=== PATIENT | male | born 1935 | race Caucasian/White ===

== ENCOUNTER 2016-10-14 06:33 | Emergency (ER) | payer MEDICARE, OTHER ==
[~2016-10-14 06:33] MED LIST: ASPI-973 PO; ATOR10TA66 PO; CHOL200047 PO; DEXT4TAB PO; GABA-502 PO; HYDR-3938 PO; INSU100I SUBQ; MELA1TAB10 PO; METO25TA6 PO; NPH,100V10 SUBQ; OXYC1TAB24 PO; VERA240C3 PO; ZYL100 PO; [UNRECOGNIZED DRUG - CODE] PO
[2016-10-14 06:35] VITALS: PULSE 71; RESP 20; O2SAT 97
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
[2016-10-14] MEDS ORDERED: Ondansetron 2 mg/mL 2 mL Inj IVPUSH PRN (07:00)
[2016-10-14] MEDS ORDERED: 0.9% Sodium Chloride 500 ML IV ONE (07:00)
[2016-10-14] MEDS ORDERED: HYDROmorphone 0.5 mg/0.5 mL iSecure Syringe IVPUSH ONE (07:00)
[2016-10-14] MEDS ORDERED: HYDROmorphone 0.5 mg/0.5 mL iSecure Syringe IVPUSH PRN (07:00)
[2016-10-14 07:30] LABS: BASOPHILS % (AUTO) 0.4 % (0-3); EOSINOPHILS % (AUTO) 0.5 % (0-5); MONOCYTES % (AUTO) 5.8 % (4-12); Mean Corpuscular Hemoglobin 28.2 pg (27.0-35.0); Mean Corpuscular Volume 92.2 fL (81-100); Platelet Count 391 bil/L (150-400)
[2016-10-14 07:38] LABS: INR 1.1 ratio
[2016-10-14 07:49] LABS: Magnesium 2.1 mg/dL (1.6-2.6)
[2016-10-14 07:58] VITALS: BP 146/69; PULSE 64; RESP 24; O2SAT 94
[2016-10-14] MEDS ORDERED: Iohexol 300 mg/mL 30 mL Inj PO ONE (08:20)
--- NOTE | 2016-10-14 09:54 | DRSVH ---
PROCEDURE: CT ABDOMEN AND PELVIS WITHOUT CONTRAST ([id number]) INDICATIONS: pain and bloating TECHNIQUE: After the administration of oral contrast, 5 mm thick sections acquired from the diaphragms to the sy mphysis. 5 mm coronal and sagittal reformats were performed. For radiation dose reduction, the foll owing was used: automated exposure control, adjustment of mA and/or kV according to patient size. COMPARISON: CT pelvis 06/18/2016 FINDINGS: Image quality: Excellent. ABDOMEN: Lung bases: Lung bases are clear. Heart size is normal. Cardiac pacemaker. Solid organs: Liver and spleen are normal in size. Gallbladder is clear. Pancreas is normal in siz e. No adrenal nodules. Both kidneys appear atrophic with irregular margins. There is mild perinephr ic fat stranding, left greater than right. No right renal calculi seen. No right hilar nephrosis. The left kidney is hydronephrotic. There are 3 punctate calcifications in the left upper pole collecting system and one in the interpolar region. There is a 0.9 x 1.3 cm stone in the dilated left renal pel vis, attenuation 286. The left ureter is dilated proximal to an obstructing 6 x 8 mm calculus at the trigone. There is a smaller 3 mm intrauterine calculus in the distal left ureter proximal to the obst ructing stone. Peritoneum and bowel: Bowel loops demonstrate normal wall thickness and caliber. Normal appendix. N o free fluid or air. Nodes and vessels: No retroperitoneal or mesenteric adenopathy by size criteria. Atheromatous aorta and inferior vena cava are normal in size. Dense calcified plaque within the superior mesenteric nneka ry. Miscellaneous: No ventral hernias. PELVIS: Genitourinary: Bladder wall thickness is normal. Prostate appears normal for age. Miscellaneous: Small fat filled left inguinal hernias, no adenopathy. Bones: No suspicious bony lesions. Multilevel degenerative lumbar disc disease. No vertebral body co mpression fractures. IMPRESSION: 1. Left hydroureteronephrosis secondary to an obstructing calculus within the trigone at the bladder base. Another smaller stone is present in the distal ureter and a large calculus is present in the di lated left renal pelvis. Punctate left nephrolithiasis also noted. 2. Both kidneys show irregular cortical atrophy. 3. Atherosclerosis. Permanent pacemaker. Dictated by: Josue Quintero M.D. on 10/14/2016 at 9:40 Approved by: Josue Quintero M.D. on 10/14/2016 at 9:52
[2016-10-14 10:08] VITALS: BP 176/57; PULSE 76; RESP 12; O2SAT 97
[2016-10-14] MEDS ORDERED: ONDA8TAB10 PO (10:26)
[2016-10-14] MEDS ORDERED: OXYC1TAB24 PO (10:26)
--- NOTE | 2016-10-14 10:31 | DRSVH ---
PROCEDURE: X-RAY CHEST ONE VIEW, PORTABLE ([id number]) INDICATIONS: epigastric pain TECHNIQUE: One view of the chest was acquired. COMPARISON: [facility], CR, XR CHEST 2VW, 10/13/2016, 12:21. FINDINGS: Surgical changes and devices: Stable positioning of left cardiac pacer. Lungs and pleura: No pleural effusions or pneumothorax. Lungs are clear. Mediastinum: Mediastinal contours appear normal. Heart size is normal. Bones and chest wall: No suspicious bony lesions. Overlying soft tissues appear unremarkable. IMPRESSION: No acute cardiopulmonary disease. Dictated by: Tashi GARZA Interpreted: Yong Quintero MD on 10/14/2016 at 10:30 Transcribed by: KADEN on 10/14/2016 at 10:30 Approved by: Josue Quintero M.D. on 10/14/2016 at 16:21
[2016-10-14 10:47] VITALS: BP 176/57; PULSE 76; RESP 12; O2SAT 97
== END 2016-10-14 10:31 | disposition home or self-care (01) ==
LOC: SED 06:33
DX: N23 Unspecified renal colic (principal); D64.9 Anemia, unspecified; R11.0 Nausea; R33.9 Retention of urine, unspecified; I11.9 Hypertensive heart disease without heart failure; E11.59 Type 2 diabetes mellitus with other circulatory complications; I25.10 Atherosclerotic heart disease of native coronary artery without angina pectoris; I25.2 Old myocardial infarction; E11.621 Type 2 diabetes mellitus with foot ulcer; L97.519 Non-pressure chronic ulcer of other part of right foot with unspecified severity; E78.5 Hyperlipidemia, unspecified; Z95.0 Presence of cardiac pacemaker; Z98.890 Other specified postprocedural states; Z79.4 Long term (current) use of insulin; Z87.891 Personal history of nicotine dependence
CPT/HCPCS: 36415; 71010; 74176; 80053; 81002; 83690; 83735; 85025; 85610; 86850; 93005; 96361; 96374; 96375; 99285; J1170; J2405; J7040; Q9967

== ENCOUNTER 2017-01-29 13:18 | Inpatient (IN) | payer MEDICARE, OTHER ==
[2017-01-29] VITALS (7 sets, daily range): BP systolic 88–133; BP diastolic 43–62; PULSE 60–84; RESP 17–28; O2SAT 94–100
[~2017-01-29] VITALS: Ht 180.3 cm; Wt 95.8 kg
[~2017-01-29 13:18] MED LIST changes: +ONDA8TAB10 PO
[2017-01-29 13:41] LABS: BASOPHILS % (AUTO) 0.1 % (0-3); EOSINOPHILS % (AUTO) 0.6 % (0-5); MONOCYTES % (AUTO) 3.2 % (4-12); Mean Corpuscular Hemoglobin 31.8 pg (27.0-35.0); Mean Corpuscular Volume 95.8 fL (81-100); NEUTROPHILS % (AUTO) 90.8 % (40-74); Platelet Count 169 bil/L (150-400)
--- NOTE | 2017-01-29 13:54 | DRSVH ---
PROCEDURE: X-RAY CHEST ONE VIEW, PORTABLE ([id number]) INDICATIONS: 81 year-old male with shortness of breath. TECHNIQUE: One view of the chest was acquired. COMPARISON: [facility], CR, XR CHEST 1VW (PORTABLE), 10/14/2016, 7:21. [facility], CR, XR CHEST 2VW, 10/13/2016, 12:21. [facility], CR, XR CHEST 1VW (PORTABLE), , 15:01. FINDINGS: Surgical changes and devices: Left chest wall dual chamber pacemaker is again noted. Lungs and pleura: No pleural effusions or pneumothorax. Lungs are clear. Lung volumes are decrease d. Right apical incidental azygos fissure is again noted, an anatomic variant. Mediastinum: Mediastinal contours appear normal. Heart size is normal. Bones and chest wall: No suspicious bony lesions. Overlying soft tissues appear unremarkable. IMPRESSION: Decreased lung volumes, without acute cardiopulmonary disease. Dictated by: Cedric Coyle M.D. on 01/29/2017 at 13:52 Approved by: Cedric Coyle M.D. on 01/29/2017 at 13:53
[2017-01-29 14:05] LABS: TROPONIN T 0.024 ug/L (0.0-0.011)
[2017-01-29 14:16] LABS: Magnesium 2.1 mg/dL (1.6-2.6)
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
[2017-01-29] MEDS ORDERED: 0.9% Sodium Chloride 1,000 ML IV ONE (15:19)
[2017-01-29] MEDS ORDERED: Meropenem Inj 1,000 MG in 0.9% Sodium Chloride 100 ML IV ONE (15:20)
[2017-01-29] MEDS ORDERED: Clindamycin Inj 900 MG in IV Premix 1 EACH IV ONE (15:20)
[2017-01-29] MEDS ORDERED: Vancomycin Dose per Pharmacist XX ONE (15:20)
[2017-01-29] MEDS ORDERED: Vancomycin Inj 2,000 MG in 0.9% Sodium Chloride 500 ML IV ONE (15:30)
[2017-01-29] MEDS ORDERED: METO50TA7 PO (15:57)
[2017-01-29] MEDS ORDERED: MELA1TAB10 PO (16:07)
[2017-01-29] MEDS ORDERED: FURO40TA4 PO (16:07)
[2017-01-29] MEDS ORDERED: FERR-83 PO (16:07)
[2017-01-29] MEDS ORDERED: Polyethylene Glycol (PEG) 17 Gm Powder PO PRN (16:20)
[2017-01-29] MEDS ORDERED: Ondansetron 2 mg/mL 2 mL Inj IVPUSH PRN (16:20)
[2017-01-29] MEDS ORDERED: Alum-Mag Hydrox-Simeth 30 mL Suspension PO PRN (16:20)
[2017-01-29] MEDS ORDERED: HYDROcodone-APAP 5-325 mg Tablet PO PRN (16:20)
[2017-01-29] MEDS ORDERED: Glucose 40% Oral Gel 15 Gm Tube PO PRN (16:27)
[2017-01-29] MEDS ORDERED: DEXTROSE 4 GM PO PRN (16:30)
[2017-01-29] MEDS ORDERED: [UNRECOGNIZED DRUG - OTHER] PO PRN (16:30)
[2017-01-29] MEDS ORDERED: DEXTROSE 10% IV PRN ×2 (16:30→17:30)
[2017-01-29] MEDS ORDERED: Insulin LISPRO 300 Unit/3 mL Inj SUBQ SCH (17:30)
--- NOTE | 2017-01-29 17:34 | NUR ---
Admit [facility] [place] rm [id number] from ED Alert, somewhat disoriented pt, arrived to unit at 1525 on a stretcher. Pt denies pain. IV x2 patent, 1 infusing fluids. SO-Meryl at bedside. Pt oriented to room and facility, denies having questions. Bed in low position, upper rails up, call light in reach. Will continue to monitor.
--- NOTE | 2017-01-29 18:41 | PCM.HPMED ---
Subjective Date of Service Jan 29, 2017 Primary Provider: Admitting Physician: Mario Hernández MD Primary Care Physician: Carlyle Attending Physician: Mario Hernández MD Chief Complaint: Right foot pain, confusion, weakness Review of Systems: Gen.: No fevers chills weight loss weight gain Eyes: no visual disturbances or blurring vision HEENT: No nose/throat drainage, no pain in ears or throat, no hearing loss Lymph: No lymph nodes noted Cardiac: No chest pain, orthopnea, PND, palpitations , pedal edema or dyspnea on exertion Pulmonary: no cough, wheezing or bringing up of sputum GI: No anorexia nausea vomiting blood or black in the stool : no dysuria hematuria urinary frequency or decrease in urine output Musculoskeletal: Joint swelling no joint pain no new muscle aches or back pain Neuro: No syncope, seizures no loss of consciousness no new focal weakness, numbness or tingling Psychiatric: New new anxiety insomnia or depression Endocrine: No new heat or cold intolerances polyuria or polydipsia Hematology: No lymphadenopathy or easy bleeding or bruising noted skin: No new rashes, stasis dermatitis Allergies Coded Allergies: No Known Allergies (Verified Allergy, Unknown, 10/14/16) Home Medications Allopurinol (Allopurinol) 100 Mg Tablet 100 MG PO DAILY Aspirin (Aspirin) 81 Mg Tablet 81 MG PO DAILY Atorvastatin Calcium (Atorvastatin Calcium) 10 Mg Tablet 10 MG PO HS Cholecalciferol (Vitamin D3) (Vitamin D3) 2,000 Unit Capsule 2,000 UNIT PO QPM Ferrous Sulfate (Ferrous Sulfate) 325 Mg Tablet 325 MG PO DAILY Furosemide (Furosemide) 40 Mg Tablet 40 MG PO DAILY Gabapentin (Gabapentin) 300 Mg Capsule 300 MG PO HS Insulin Aspart (NovoLOG U-100 Pen) 100 Unit/Ml Insuln.pen 6-15 UNITS SUBQ TIDWM based on BS reading and carbs consumed Melatonin (Melatonin 1 mg Tablet) 1 Each Tablet 10 MG PO HS Metoprolol Succinate ER (Toprol XL) 50 Mg Tablet 50 MG PO BID NPH, Human Insulin Isophane (Novolin-N U100 Insulin Vial) 100 Unit/1 Ml Vial 3- 10 UNITS SUBQ HS based on BS reading Scheduled PRN Dextrose (Dex4 Glucose) 4 Gm Tab.chew 4 GM PO PRN PRN PRN hypoglycemia Melatonin (Melatonin 1 mg Tablet) 1 Each Tablet 1 MG PO HS PRN PRN Insomnia PMH Peripheral vascular disease Gout Proliferative diabetic retinopathy Obesity Type 2 diabetes mellitus Chronic kidney disease, stage 3 (moderate) Baseline Cr 1.8 Essential hypertension Depression Nephrolithiasis Hyperlipidemia Ischemic cardiomyopathy EF 45 % with focal wall motion abnormalities in LAD distribution Complete AV block s/p pacemaker placement Surgical History right percutaneous Achilles tendon release 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 Elderly male sitting up in bed sort of nodding off Eyes- open conjunctiva clear, pupils equal nonicteric Mouth- oral mucosa moist, no exudate ENT- ears normal, nose normal Neck- supple/trach midline CVS- RRR no murmur or gallop Lungs CTA GI- NABS/NT soft Musc- moving 4 no obvious deformity Neuro- cranial nerves II through XII intact to gross examination, nonfocal Skin- warm and dry, no rashes/lesions/wounds noted There is not hard eschar on the best of the right foot 5 mm x 15 mm with a small surrounding raised area of erythema probably 2 cm in diameter There are couple alan with erythema used to be but this resolved to a more almost up to his knee that were made in the emergency room in a couple around the plantar aspect of his foot at the level of the wound at the time I am examining him virtually resolved. Psych-initially quite obstinate and I thought he was going to fire me/throw me out of the room. Only calm him down and he was actually cooperative and kind of reasonable. He is really quite confused but his family reports better than earlier. Lab and Diagnostics Result Diagram: 01/29/17 1330 01/29/17 1330 X-Rays, CTs and MRIs X-RAY CHEST ONE VIEW, PORTABLE: Cedric Coyle M.D. on 01/29/2017 at 13:52 IMPRESSION: Decreased lung volumes, without acute cardiopulmonary disease. Dictated by: Cedric Coyle M.D. on 01/29/2017 at 13:52 12-lead ECG Sinus rhythm rate 82, QTC doubt it is actually 505 computer overreading concurrently reviewed by myself 01/29/70 First degree AV block . Prolonged NM interval . Nonspecific IVCD with LAD Cardiac Echo Impressions Echocardiogram Report: Christy Calhoun on 10/28/2016 NSR. Normal LV size; mild concentric LVH; severely reduced EF, estimated at 25- 30%. Stage II diastolic dysfunction. Severe LA enlargement; moderate RA enlargement. Mitral valve leaflets are mildly calcified; there is moderate MAC with moderate associated MR. Aortic valve is sclerotic without significant stenosis; there is mild associated AI. Compared to prior study performed 07/04/2016, EF is down from 60-65% to 25- 30%. Additional Diagnostics: IMPRESSION: Abnormal myocardial perfusion images.: Kiley Blunt M.D. on 2015 at 14:08 1. 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 2. There is mild meir-infarct ischemia in the anterior apical wall. 3. Decreased wall thickening in the apex which is dyskinetic. There is mild left ventricular enlargement. Left ventricular ejection fraction is at the low normal range. 3. Hypotensive response to Lexiscan fusion. No chest pain or diagnostic EKG changes for ischemia. Dictated by: Kiley Blunt M.D. on 09/17/2015 at 14:08 Assessment & Plan 81-year-old male brought in by significant other due to erythema of right foot that is previously been infected, as well as confusion. #Infected diabetic foot- -got meropenem , clindamycin, vancomycin in ED- erythema that was present up to almost the knee has virtually resolved. -ID to consult, for now continuing Zosyn #Acute metabolic encephalopathy -Multifactorial possible sepsis plus gabapentin the setting of renal failure will follow. He is requesting the gabapentin and I will continue it. #IDDM-patient has been taking 20 units of short-acting 2-3 times a day as his blood sugars have been getting out of control. Then he is using sugar tablets I think that he is seesawing his blood sugars. -Reportedly normally he does have very good job of counting carbs and controlling blood sugars. 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 Witnessed that here during this interview. We will start him on some low-dose Celexa and Seroquel bid daytime dose for sedation #Prophylaxis-DVT with SCDs as able, heparin. GI not indicated #Disposition- DO NOT RESUSCITATE from independent living Mario Hernández MD Jan 29, 2017 18:41
--- NOTE | 2017-01-29 18:45 | NUR ---
Voiding. Per ED report, pt hasn't voided all day, on unit for about 2 hours and no UOP yet. Bladder scan done, revealed 302 mL. MD notified. Pt denies discomfort. Will continue to monitor.
[2017-01-29] MEDS: Piperacillin-Tazo 3.375 Gm Inj 3.375 GM in Dextrose 5% Minibag Plus 50 ML IV SCH (20:47)
[2017-01-29] MEDS: MeTOProlol XL 50 mg ER24 Tablet PO SCH (20:52)
[2017-01-29] MEDS: 0.9% Sodium Chloride 1,000 ML IV SCH (20:52)
[2017-01-29] MEDS: Insulin LISPRO 300 Unit/3 mL Inj SUBQ SCH (21:54)
[2017-01-29 23:51] LABS: APPEARANCE,URINE CLEAR (CLEAR,HAZY); COLOR,URINE YELLOW (YELLOW); OCCULT BLOOD,URINE NEGATIVE (NEGATIVE); UROBILINOGEN,URINE NORMAL (NORMAL)
[2017-01-30] VITALS (7 sets, daily range): BP systolic 93–158; BP diastolic 56–71; PULSE 59–61; RESP 16–20; O2SAT 93–99
[2017-01-30] MEDS: Heparin 5,000 Unit/mL Inj SUBQ SCH ×3 (00:30→16:30)
--- NOTE | 2017-01-30 05:33 | NUR ---
Orellana: at start of shift pt not able to void. attempted to void via urinal. Pt Bladder scanned , with 556mls. orellana catheter placed, apprx 600mls drained immediately after placing catheter. pt c/o foot pain, yelling out, but refusing Vicodin. asked pt what he has taken before for pain. Oxycodone ordered, and pt willing to take, and able to report relief. pt had large BM, and has been sleeping since. will continue to monitor.
[2017-01-30 06:22] LABS: BASOPHILS % (AUTO) 0.2 % (0-3); EOSINOPHILS % (AUTO) 1.6 % (0-5); MONOCYTES % (AUTO) 5.8 % (4-12); Mean Corpuscular Volume 97.4 fL (81-100); NEUTROPHILS % (AUTO) 83.6 % (40-74); Platelet Count 140 bil/L (150-400)
[2017-01-30 06:53] LABS: TROPONIN T 0.012 ug/L (0.0-0.011)
[2017-01-30] MEDS: Piperacillin-Tazo 3.375 Gm Inj 3.375 GM in Dextrose 5% Minibag Plus 50 ML IV SCH ×2 (08:02→16:41)
[2017-01-30] MEDS: Insulin LISPRO 300 Unit/3 mL Inj SUBQ SCH ×4 (08:12→22:00)
[2017-01-30] MEDS: MeTOProlol XL 50 mg ER24 Tablet PO SCH ×2 (08:13→21:15)
--- NOTE | 2017-01-30 13:02 | DRSVH ---
PROCEDURE: X-RAY RIGHT FOOT, TWO VIEWS ([id number]) INDICATIONS: infection possible osteo metacarpal 3-5 TECHNIQUE: 3 views of the foot were acquired. COMPARISON: [facility], CR, XR FOOT 3VW RT, 07/04/2016, 6:10. FINDINGS: Bones: No fractures or dislocations. Postsurgical changes related amputation of the great toe, and f ourth toe as before. Diffuse midfoot degenerative change with lucency and bony sclerosis. Posterior c alcaneal spurring. No suspicious bony lesions. Erosions are present involving the third and fourth m etatarsal heads similar prior exam. No definite new advanced osteomyelitis is seen. Soft tissues: Numerous vascular calcifications. There are scattered areas of soft tissue gas which is decreased. On the plantar aspect, possible subcutaneous gas extends to the skin surface similar to p rior exam. IMPRESSION: 1. Postsurgical changes. 2. Charcot joint. 3. Soft tissue swelling and gas redemonstrated. 4. Erosions involving the third and fourth metatarsal heads similar to prior examination. 5. Although no definite new bony erosions are identified, plain film radiography is relatively insens itive in the acute phases of osteomyelitis and may not demonstrate radiographic changes for 15 days. If acute osteomyelitis is of clinical concern, nuclear medicine regional bone scan or MRI is recomme nded. Dictated by: Tashi Ashford [facility] Interpreted: Yunier Burt MD on 01/30/2017 at 12:59 Transcribed by: TIM on 01/30/2017 at 13:01 Approved by: Yunier Burt M.D. on 01/30/2017 at 14:10
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
[2017-01-30] MEDS ORDERED: Insulin Human NPH 100 Unit/mL Syringe SUBQ ONE (14:55)
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
[2017-01-30] MEDS: 0.9% Sodium Chloride 1,000 ML IV SCH ×2 (16:03→22:59)
[2017-01-30] MEDS: Insulin GLARgine 100 Unit/mL Syringe SUBQ SCH (21:00)
--- NOTE | 2017-01-30 21:20 | NUR ---
Insulin @2114 BG was 217, pt. refused lantus stated" I don't want it, I'll take insulin myself at home", explained the risk and benefits, MD notified. Will continue to monitor.
[2017-01-31] MEDS: Heparin 5,000 Unit/mL Inj SUBQ SCH ×3 (01:24→16:43)
--- NOTE | 2017-01-31 03:16 | CONS ---
[address] [address] CONSULTATION REPORT PATIENT: DEVORA PARK : 1935 MR#: [id number] ADMIT: 01/29/2017 JOB ID: [id number] DATE OF SERVICE: 01/30/[address] Hernández for this timely consult. REASON FOR CONSULTATION: Right lower extremity cellulitis in a diabetic gentleman with a right Charcot foot and ankle. HISTORY OF PRESENT ILLNESS: This complex patient is well known to me from diabetic foot infection in July 2016. At that time, he had a complicated diabetic foot infection which likely involved osteomyelitis. Cultures grew Enterococcus as well as E. coli, and so we decided to treat the patient with a long course of Zosyn, which cover the Enterococcus as well as anaerobes, plus minocycline for specific treatment of any Staph and also Stenotrophomonas which was isolated from that wound. At the time I did not think that the Stenotrophomonas was likely to play any meaningful role, but in view of the severity of his osteomyelitis of that right leg, we decided to go ahead and use minocycline as several articles have demonstrated that minocycline may be good for Stenotrophomonas. The patient recovered after that episode of osteomyelitis and was back living at home living alone but with frequent visits from his girlfriend. The patient and his girlfriend noted a few days ago that his right lower extremity below the knee was becoming erythematous. In association with this erythema, the patient developed an encephalopathy with confusion and disorientation. His girlfriend, who has some medical training apparently, also noted that he was developing fever and for these reasons he was brought to the hospital and admitted yesterday, January 29. At the time of admission, he was having very significant fevers above 39 degrees in association with this right lower extremity cellulitis. The patient was empirically given very broad spectrum antibiotics with vanco, Meropenum, and clindo in the ER as is their protocol for flesh eating or life threatening soft tissue infections. He subsequently improved considerably here on the castro and is now been switched to Zosyn alone as his currently treatment. This afternoon the patient is awake, alert and conversant. At times he is quite gruff, but he is alert and orient and able to give some history. He states that he is already starting to feel better in that his fever and chest pain have resolved. Notes that he had a bit of cough and chest pain also in his first 24 hours in the hospital but that has improved. At this point he is not having any more fevers or chills. He denies any pulmonary symptoms at all and he says he is very hungry. He has no GI symptoms. He states that the erythema below the knee does not bother him, but it is notable that he has a really severe and fairly proximal neuropathy in both lower extremities as well as in both hands. PAST MEDICAL HISTORY: 1. Diabetes mellitus. 2. Chronic renal insufficiency, now worse. 3. Obesity. 4. Diabetic retinopathy. 5. Severe peripheral vascular disease. 6. Severe diabetic neuropathy. 7. Gout. 8. Hypertension. 9. Depression. 10. Nephrolithiasis. 11. Hyperlipidemia. 12. Ischemic cardiomyopathy. 13. 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 14. Many surgical procedures on both lower extremities including the amputation of one toe on the left foot, two toes on the right foot. 15. Right Charcot ankle/foot. 16. Coronary artery disease with history of myocardial infarction. SOCIAL HISTORY: The patient is an ex-smoker. He does not drink alcohol. He live alone but has a girlfriend who is over frequently and apparently was a nurse. FAMILY HISTORY: There is no family history as the patient was adopted as a baby and has no idea. REVIEW OF SYSTEMS: Was done in its entirety. The patient states this afternoon that he has no significant headache. No acute visual change though his vision is less than optimal at baseline. No sore throat, but he did earlier have some mild sore throat. He notes he has dry mucous membranes. He did have a bit of cough earlier that has resolved. He also had a bit of chest pain earlier and that has resolved. No difficulty breathing. No nausea, vomiting, diarrhea. He does not have any trouble urinating and he is frustrated because he now has developed a Moran catheter placement, would like to have that removed. He notes that he has no sensation in his feet and all way up almost up to his knees bilaterally. He likewise has almost no sensation in his hands. The remainder of the review of systems is negative. PHYSICAL EXAMINATION: An afebrile man. Temperature 36.9, pulse 60, respiratory rate 18, blood pressure 158/71. He is saturating well on room air. Examination of the mental status reveals he is clear this afternoon. He seems a bit depressed and perhaps a bit cantankerous, but this is his baseline personality as I know it from prior admissions. There is no evidence of a head trauma. He has no scleral icterus or conjunctivitis. His nose appears normal. Oral mucous membranes are dry. There is no evidence of pharyngitis. No evidence of stiff neck. No cervical adenopathy. Lungs: A few crackles at the bases, but for him pretty good. Cardiac tones: Regular rate and rhythm; it is a paced rhythm. No significant murmur. He has a pacer in his left upper chest, which is nontender. Abdomen is distended, soft, nontender. No organomegaly. The patient has a Moran catheter though he wishes he did not, straining clear, yellow urine. No inguinal adenopathy is noted. The lower extremities are pretty normal down to the knees and there is no evidence of synovitis around the knees. Below the knees, he has a dense neuropathy and really can not feel anything. He has diminished peripheral pulses in both feet, slow capillary refill. Two toes are missing from the right foot and one from the left. On his right foot he clearly has a Charcot ankle with dramatic enlargement of the ankle joint. This area however is completely nontender and without inflammation or sinus tract. On the plantar aspect of the right foot there is a 4 mm deep, shallow ulcer that was thoroughly explored just moments ago by Dr. Edwards of podiatry. She says it is a completely clean wound. She took a sample and re-dressed it and the patient was not eager for us to remove the dressing, but she said she thought it looked completely uninfected. Neurologically, the patient has a dense neuropathy as mentioned. He can move all of his extremities and he is awake and alert. Below the knee on the right side, there is a confluent cellulitis which extends from the ankle, basically up to the knee. This does not extend on to the ankle on the right foot. It is a diffuse erythema with moderate warmth and no significant tenderness or blebs. LABORATORIES: Include white count 13,000 with left shift, 84% segs. Sed rate not checked on this admission. It was greater than 140 last time he was here. Creatinine 2.[address] up from his baseline about 1.6. No CRP so far on this admission either. Urinalysis this admission: No white cells. Blood cultures are negative. Going back to his cultures from July, he had Stenotrophomonas in his foot, E. coli and Enterococcus. We were unsure which of those were the major pathogens, so we treated them all for six weeks with Zosyn and minocycline after shown that the Stenotrophomonas was sensitive to minocycline. IMPRESSION: This patient has a right lower extremity cellulitis which seems to have produced his encephalopathy which has already resolved. Other symptoms of infection or other signs of infection include the physical exam as well as the elevated white count. This has the appearance of a Streptococcal infection which he is certainly at high risk for, though the possibility of Staph infection, including Methicillin-resistant Staphylococcus aureus or gram negatives can not be excluded. RECOMMENDATIONS: 1. I will continue with Zosyn alone as I think it is good coverage. 2. I do not think we need to look for osteomyelitis as Dr. Edwards and I have discussed this case in detail and I do not think that there is any osteomyelitis hiding within the Charcot joint nor in the plantar aspect of the foot and rather we are dealing with a simple cellulitis. 3. Additional labs to be ordered include MRSA screen to the nose, ASO titer and procalcitonin. 4. To the labs I would add a CRP just so we have a baseline level and note that we will continue to follow this patient with you and hopefully make a simple discharge plan early next week that will not involve alf use of IV antibiotics.
[2017-01-31 04:58] VITALS: BP 144/62; PULSE 59; RESP 16; O2SAT 98
[2017-01-31] MEDS: Piperacillin-Tazo 3.375 Gm Inj 3.375 GM in Dextrose 5% Minibag Plus 50 ML IV SCH ×2 (05:08→16:44)
[2017-01-31] MEDS: Insulin LISPRO 300 Unit/3 mL Inj SUBQ SCH ×4 (08:19→22:42)
[2017-01-31] MEDS: MeTOProlol XL 50 mg ER24 Tablet PO SCH ×2 (08:20→20:12)
--- NOTE | 2017-01-31 09:30 | NUR ---
SHANIQUA signed. JENNIFER Youssef
--- NOTE | 2017-01-31 10:35 | NUR ---
Agitation/Mobility Patient agitated this AM, c/o "disgusting food", "filthy hospital" and "stupid doctors". RN offered to order him something else to eat and call housekeeping but patient declined. Patient repeatedly called this RN stupid and an idiot during assessment. Patient asked if he could walk to bathroom because the commode is uncomfortable for him. 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 Helped patient back to bed safely, pt lying in bed , eyes closed call light within reach.
--- NOTE | 2017-01-31 10:51 | CONS ---
[address] [address] CONSULTATION REPORT PATIENT: DEVORA PARK : 1935 MR#: [id number] ADMIT: 01/29/2017 JOB ID: [id number] DATE OF SERVICE: 01/30/2017 CONSULTATION REQUESTED: Mario Hernández MD regarding the patient's right foot pain and ulcer. HISTORY: The patient is a 81-year-old gentleman who is well known to me through the [facility] for recurrent ulcerations on the right foot and multiple partial forefoot amputations in the past. The patient has had a neuropathic Charcot foot breakdown on the right that healed after partial excision of his cuboid. The patient went on to the nursing facility with IV antibiotics for osteomyelitis last fall. After the healing was complete, his right plantar foot continued to callus for a while and he failed to follow up outpatient after being discharged from the [facility]. The callus was supposed to be debrided approximately once a month to prevent further re-ulceration. However, after three months of not seeing him, the ulceration has recurred. The patient has not been able to tell me exactly how long his foot has been hurting but stated that he was not feeling right yesterday and that his significant other, Meryl, brought him to the emergency department on my recommendation since he has had some fevers and chills at home as well as acting confused. REVIEW OF SYSTEMS: The patient denies fevers, chills, nausea, vomiting today. He has not had any pain in his right foot. He relates neuropathic pain in both feet that is relieved by gabapentin that he takes on a nightly basis. He denies chest pains or shortness of breath. He has a pacemaker. No recent diarrhea or constipation. Psychiatric: The patient has had multiple bouts of behavior disturbance, some episodes of aggressiveness and short term memory loss. ALLERGIES: None known. CURRENT OUTPATIENT MEDICATIONS: 1. Allopurinol 100 mg daily. 2. Aspirin 81 mg daily. 3. Atorvastatin 10 mg p.o. q.h.s. 4. Vitamin D 3, 2000 units q.h.s. 5. Ferrous sulfate 325 mg p.o. daily. 6. Furosemide 40 mg p.o. daily. 7. Gabapentin 300 mg p.o. q.h.s. 8. Insulin aspart 6-15 units subcu 3 times a day with meals based on sliding scale. 9. Melatonin 1 mg p.o. q.h.s. 10. Metoprolol 50 mg p.o. b.i.d. 11. NPH insulin 10 units subcu q.h.s. PAST MEDICAL HISTORY: Type 2 diabetes, chronic kidney disease stage 3, depression, nephrolithiasis, hyperlipidemia, ischemic cardiomyopathy, complete AV block status post pacemaker placement, essential hypertension, peripheral vascular disease, gout, peripheral neuropathy, multiple forefoot amputations. FAMILY HISTORY: The patient is adopted and does not know his family history. SOCIAL HISTORY: The patient living independently. He has a significant other who lives in a different home and visits frequently. He has his son and his son's girlfriend living in the house with him. He rarely drinks alcohol in very small amounts. He is a former smoker and quit over 20 years ago. No history of substance abuse. He is retired and a . PHYSICAL EXAMINATION: The patient is alert and cooperative, somewhat disoriented and fatigued appearing. He does recognize me from previous visits. His vital signs on my arrival included blood pressure of 158/71, pulse 60, respirations 18, temperature 36.9 degrees Celsius, pulse ox 99% at room air. He is overall fatigued appearing with a flat affect. Bilateral lower extremity focused examination shows no edema, no erythema. No pain to palpation. No fluctuance. Plantar right foot shows an area of excessive callusing in the region of the previous ulceration with underlying hemorrhage. After debridement of the callus it was found that there was an open ulceration which needed to be excised. The total depth was 4 mm after excision of the callus and underlying open wound. The total wound size was 1.2 x 0.8 cm in size and 0.4 cm in depth. There is a granular base after debriding all of the callus and fibrinous tissue. There is no purulence. No tracking. No tunneling and no pain upon palpation or debridement. Nonpalpable pulses but dopplerable DP and PT bilaterally. no erythema. Left foot examination shows no tenderness to palpation, the area that the patient normally report some pain which is in the heel, partial lateral 5th ray amputation with no sequela. No open ulcerations. ASSESSMENT: Right plantar foot ulcer with fat layer exposed, recurrent secondary to a Charcot foot deformity and diabetes with peripheral neuropathy. PLAN: I reviewed the x-rays previously ordered today. His Charcot foot is consolidated. I do not see any areas of excessive ostial lysis to suggest osteomyelitis. The current area of ulceration is simply a result of previous scar tissue that had callused over and there is no plantar or rocker bottom prominence. The foot is plantigrade and flat with no bony prominence in the midfoot. Today after excisional debridement of the ulceration, I irrigated it with normal saline and placed a normal saline moistened gauze and cushioned adhesive tape dressing on the plantar aspect of the right foot to allow for weightbearing. He can put full weight on it as long as he is using a walker and a postoperative shoe. My goal is to try to get him into his normal diabetic shoes and away from his [employer] [employer] walker as it seems to be causing more pain and instability in both feet. The patient's significant other, Meryl, will hopefully bring his diabetic shoes to the hospital so that I can assess them before discharge. If the patient is discharged over the weekend, I would like to see him on Thursday, February 03, 2017, at my office at 12:[address] Mckoy will be data migration consultant for this weekend in case any further questions. The patient at this point does not have anything that appears to be an active infection. After thorough debridement and cleansing, I did obtain a culture specimen to see if we can grow out any pathogens that would explain his elevated white blood cell count of 13 and fevers prior to hospitalization. The patient is also at high risk for a UTI, given previous history.
[2017-01-31] MEDS: 0.9% Sodium Chloride 1,000 ML IV SCH (11:16)
--- NOTE | 2017-01-31 12:10 | NUR ---
Social Work-initial assessment: Data:See initial assessment. Pt is a 81 y/o male who was admitted on 01/29/17 for sepsis per H&P. Pt's insurance is [employer] and PCP is not listed. EMR Reviewed. Pt's readmission score is 5-high risk. BRIAN met with pt at bedside, SW role explained. Pt is alert and oriented x3. pt resides at in [facility] with his son Yazan [phone] where he remains independent with basic ADls. Pt's home is [address] [place] [address]. Pt uses a fww at baseline and does not drive. Pt has no HH history, but has been to [facility] SN[facility] and states he would never go back to a SNF. Pt has no terminal block assembler care insurance or VA benefits. SW discussed DPOA/ advanced directive, pt confirms he has completed this, SW encouraged a copy to be brought in. SW requested to speak with family, pt declined. Pt being followed by Podiatry and ID, currently on IV abx. PT has seen pt and recommend SNF placement. SW to await MD order for SNF to further discuss with pt. SW discussed lack of PCP and pt states he is working on finding a new one since [facility] left. SW provided phone number on board in room. SW will continue to follow. Assessment:Pt who will likely need a SNF. Plan:SW to follow up again with pt regarding discharge planning. SW to await MD order for SNF. Pt being followed by Podiatry and ID, currently on IV abx. SW will continue to follow. JENNIFER Youssef Addendum: 01/31/17 at 1215 by ASA MARC Amended: Links added.
--- NOTE | 2017-01-31 14:26 | PCM.PNMED ---
Subjective Date of Service Jan 31, 2017 Subjective Happily patient was sleeping and I did not wake him. He has basically been rude and told staff and everybody here how stupid we are that we do not know anything. Happily he is only been violent once. Reportedly Seroquel seems to be having a calming effect on him. Instead of simply insulting people people have to interact with him prior to being insulted rather than just be in the general vicinity. Exam Vital Signs Vital Sign - Last Date Time Temp Pulse Resp B/P Pulse Ox O2 Delivery O2 Flow Rate FiO2 01/31/17 04:58 36.7 59 16 144/62 98 Room Air 01/29/17 14:36 2 Intake and Output 01/30/17 01/30/17 01/31/17 Cumulative From/Thru 15:00 23:00 07:00 01/29/17 14:14 - 01/31/17 06:06 Intake Total 3072 ml 680 ml 5391 ml Output Total 890 ml 650 ml 2405 ml Balance 2182 ml 30 ml 2986 ml Intake Oral 757 ml 200 ml 1597 ml IV Total 2315 ml 480 ml 3794 ml Output Urine Total 890 ml 650 ml 2405 ml # Bowel Movements 1 2 Exam Gen.-Sleeping in bed no apparent distress Eyes-closed, normal eyelids, no discharge ENT- ears normal, nose normal Neck- trach midline CVS-normal rate Lungs regular, nonlabored GI-flat Musc- moving 4 no deformities other than Charcot foot on the right with wound as described below and missing toe(s) Neuro- cranial nerves II through XII intact to gross examination, nonfocal Skin- warm and dry, hard eschar on plantar aspecte right foot 5 mm x 15 mm with a small surrounding raised area of erythema probably 2 cm in diameter(examined last 01/30) Psych-sleeping, not aroused Lab and Diagnostics Result Diagram: 01/30/17 0555 01/30/17 0555 X-Rays, CTs and MRIs X-RAY RIGHT FOOT, TWO VIEWS: Yunier Burt MD on 01/30/2017 at 12:59 1. Postsurgical changes. 2. Charcot joint. 3. Soft tissue swelling and gas redemonstrated. 4. Erosions involving the third and fourth metatarsal heads similar to prior examination. 5. Although no definite new bony erosions are identified, plain film radiography is relatively insensitive in the acute phases of osteomyelitis and may not demonstrate radiographic changes for 15 days. If acute osteomyelitis is of clinical concern, nuclear medicine regional bone scan or MRI is recommended. Dictated by: Tashi Ashford [facility] Interpreted: Yunier Burt MD on 01/30/2017 at 12 :59 X-RAY CHEST ONE VIEW, PORTABLE: Cedric Coyle M.D. on 01/29/2017 at 13:52 IMPRESSION: Decreased lung volumes, without acute cardiopulmonary disease. Dictated by: Cedric Coyle M.D. on 01/29/2017 at 13:52 12-lead ECG Sinus rhythm rate 82, QTC doubt it is actually 505 computer overreading concurrently reviewed by myself 01/29/70 First degree AV block . Prolonged OH interval . Nonspecific IVCD with LAD Cardiac Echo Impressions Echocardiogram Report: Christy Calhoun on 10/28/2016 NSR. Normal LV size; mild concentric LVH; severely reduced EF, estimated at 25- 30%. Stage II diastolic dysfunction. Severe LA enlargement; moderate RA enlargement. Mitral valve leaflets are mildly calcified; there is moderate MAC with moderate associated MR. Aortic valve is sclerotic without significant stenosis; there is mild associated AI. Compared to prior study performed 07/04/2016, EF is down from 60-65% to 25- 30%. Additional Diagnostics IMPRESSION: Abnormal myocardial perfusion images.: Kiley Blunt M.D. on 2015 at 14:08 1. 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 2. There is mild meir-infarct ischemia in the anterior apical wall. 3. Decreased wall thickening in the apex which is dyskinetic. There is mild left ventricular enlargement. Left ventricular ejection fraction is at the low normal range. 3. Hypotensive response to Lexiscan fusion. No chest pain or diagnostic EKG changes for ischemia. Dictated by: Kiley Blunt M.D. on 09/17/2015 at 14:08 Assessment & Plan 81-year-old male brought in by significant other due to erythema of right foot that is previously been infected, as well as confusion. 01/30 awaiting direction from podiatry and infectious disease. Plain film pending eval for osteomyelitis. Blood sugars not controlled, starting long- acting insulin. /3 continuing Zosyn, plain films hard to read right now were not calling osteomyelitis per infectious disease/podiatry. Adjusting insulin regimen for improved control blood sugars now 200-250. Patient is less unpleasant on current psychotropic regimen. #Infected diabetic foot-plain films completed as noted above defer to podiatry/ ID to determine whether further imaging indicated. -got meropenem, clindamycin, vancomycin in ED- erythema that was present up to almost the knee has virtually resolved. -ID/podiatry following, thank you. -Zosyn 01/29- #Acute metabolic encephalopathy -Multifactorial possible sepsis plus gabapentin the setting of renal failure will follow. He is requesting the gabapentin and I will continue it. #IDDM-patient has been taking 20 units of short-acting 2-3 times a day as his blood sugars have been getting out of control. Then he is using sugar tablets I think that he is seesawing his blood sugars. 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 Witnessed that here during this interview. -low-dose Celexa and Seroquel bid daytime dose for sedation 01/29 -Psychiatry/behavioral health consult 01/30 #Prophylaxis-DVT with SCDs as able, heparin. GI not indicated #Disposition- DO NOT RESUSCITATE from independent living VTE Mechanical Devices: Intermittant Pneumatic CD Mario Hernández MD Jan 31, 2017 14:26
[2017-01-31 15:49] VITALS: BP 177/72; PULSE 60; RESP 18; O2SAT 99
[2017-01-31 18:25] VITALS: BP 134/52; RESP 18
[2017-01-31 20:29] VITALS: BP 149/66; PULSE 60; RESP 18; O2SAT 99
--- NOTE | 2017-01-31 20:35 | CONS ---
[address] [address] CONSULTATION REPORT PATIENT: DEVORA PARK : 1935 MR#: [id number] ADMIT: 01/29/2017 JOB ID: [id number] DATE OF SERVICE: 01/31/2017 IDENTIFICATION OF PATIENT: Patient is a 81-year-old male from [place]. The patient was seen at the request of the physician hospitalist due to significant concern of altered mental status, agitation, and question of some depression. CHIEF COMPLAINT: " I know over the past couple months that I have been more lamar, depressed." HISTORY OF PRESENT ILLNESS: As stated above, the patient is a 81-year-old male who met with myself at length. I reviewed his previous course of increasing difficulties with irritability and low frustration. He was very apologetic throughout the course of interview with open identification that he is a Yazdanism and one of the elders of his orthodoxy and he does not want to hurt anybody. He did make open identification of significant losses that he has experienced over the past several years including loss of a of 50 years from brain cancer, a loss of a daughter, and significant transition of his medical health. He reports that he spent some time in a local prison recently and that he had shared with the nursing staff that he was struggling with thoughts of wanting to . He reported that he knows as a diabetic that he can refuse his insulin or refuse to take in any diet calories knowing that this would be the easy way to . He openly identified a previous belief system that individuals who committed suicide would go to hell but he states that with additional support and counseling through his plate cleaner, he has come to terms that he believes that if you had made a decision to follow Eleazar that ultimately you have already created a pathway to [facility]. He indicates that he there are days that he deeply misses his and daughter. He indicates, however, that his current reason for living is based on his relationships with his son, who recently moved back into the home within the past five weeks, a girlfriend that he has known for many years and was at one time to his best friend, and additional supports through his local orthodoxy. He openly admitted to significant complaints of anhedonia, some delays of concentration, difficulties with feelings of hopelessness and helplessness as related to his medical complications. He has had a significant long-term history of chronic renal failure and cardiomyopathy in the past. He reports that he is in transition with physicians and this was supported from the family. Evidently he is looking for a new physician to begin in March. He currently denies any evidence of expressed suicidal ideation, intent, or plan. I did perform a Mini Mental Status Exam, and the patient scored 26/30 with mild impairment of immediate recall. He was very articulate and told extensive stories about his participation in the [employer]. PAST MEDICAL HISTORY: Deferred to the medical hospitalist team. PAST PSYCHIATRIC HISTORY: Substantial for initiation of antidepressants following the of his . The girlfriend indicated that he was only on the medication for less than a month and he went to his plate cleaner and other support systems. There is no other psychiatric history noted. SOCIAL HISTORY: The patient lives in the home that he and his built greater than 40 years prior. His son just recently moved back into the home with his girlfriend from the [facility]. He is currently involved in a relationship who was at one time the of his best friend. His is along with his daughter, who from complications post surgery for gastric bypass. He denies any history of abuse or trauma. He indicated that as a youth he moved around a lot. 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 He was adopted, and at one point, identified as the 1st adopted male in the [facility]. He reportedly graduated from high school in [place] and later enlisted in the [employer]. 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 FAMILY HISTORY: Unknown. DEVELOPMENTAL HISTORY: As noted above. MENTAL STATUS EXAM: General appearance: The patient initially was somewhat reluctant to engage but improved throughout the course of conversation. He maintained good eye contact. He became tearful in discussing his losses. His speech is of normal tone, frequency, and volume. His mood is depressed. His affect is congruent. His thought process showed no evidence of racing thoughts, flight of ideas. He tends to be somewhat loose and tangential but is redirectable. His thought content: He did admit to thoughts of suicide in the past but denies any specific intent or plan at this time. He denies any active hallucinations, delusions. No evidence of paranoia. He was alert, oriented to person, place, time, situation. Mini-Mental Status Exam was completed with a score of 26/30. Insight and judgment are fair. IMPRESSIONS: Readfield I. 1. Major depressive disorder, recurrent type, nonpsychotic. 2. Rule out delirium, resolving. Readfield II. Deferred. Readfield III. Deferred to the medical hospitalist team. Readfield IV. Stressors are noted for chronic medical issues, losses of , child, and life transition. Readfield V. Global Assessment of Functioning current 45. PLAN: 1. Continuation of Celexa as noted at 10 mg q.a.m. with consideration of titration in approximately one week for continuation of maintenance doses at 20 mg daily. 2. Continuation of doses of Seroquel 25 mg b.i.d. At this point, there appears no reasoning for further titration. 3. Recommendations for aftercare including supportive care through the family and orthodoxy support Possibility of referrals to counseling. However, it is doubtful that patient will be able to connect with any agency due to limited access. [facility]
[2017-01-31] MEDS: Insulin GLARgine 100 Unit/mL Syringe SUBQ SCH (22:38)
[2017-02-01] MEDS: Heparin 5,000 Unit/mL Inj SUBQ SCH ×4 (00:48→21:18)
[2017-02-01 02:44] VITALS: BP 130/77; PULSE 84; RESP 16; O2SAT 96
[2017-02-01] MEDS: Piperacillin-Tazo 3.375 Gm Inj 3.375 GM in Dextrose 5% Minibag Plus 50 ML IV SCH ×2 (04:46→16:31)
[2017-02-01 05:35] VITALS: BP 135/63; PULSE 60; RESP 16; O2SAT 97
--- NOTE | 2017-02-01 06:42 | NUR ---
Ambulation/Emotion Pt very pleasant and enjoyed conversation during shift. Used call light appropriately for assistance to restroom. Needed some time and multiple attempts to rise to feet, but was steady ambulating with FWW to restroom. When woken during the night for rounds, he expressed sadness and grief over difficult relationships with family members and the loss of his daughter. This nurse allowed space for him to share his story and he settled into sleep again. Frequent rounding continues.
[2017-02-01] MEDS: Insulin LISPRO 300 Unit/3 mL Inj SUBQ SCH ×4 (08:00→21:14)
[2017-02-01] MEDS: MeTOProlol XL 50 mg ER24 Tablet PO SCH ×2 (08:00→21:11)
[2017-02-01] MEDS: 0.9% Sodium Chloride 1,000 ML IV SCH ×2 (08:01→15:49)
[2017-02-01] MEDS ORDERED: Benzocaine-Menthol Lozenge 2/Pkg PO PRN (09:20)
[2017-02-01] MEDS: Nystatin 100,000 Unit/mL 5 mL Suspension PO SCH ×3 (13:11→21:13)
[2017-02-01 13:15] VITALS: BP 136/59; PULSE 60; RESP 17; O2SAT 97
--- NOTE | 2017-02-01 14:39 | NUR ---
Behavior Patient's behavior mostly calm and cooperative during day shift. 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 Bed low and locked, call light in reach, care and rounding ongoing.
--- NOTE | 2017-02-01 14:41 | PCM.PNPOD ---
Subjective Date of Service: Jan 31, 2017 Date of Service: Jan 31, 2017 Visit Information: Reason for Visit Sepsis, Cellulitis Surgery/Surgery Date Post-Op Day # Date of Admission: Jan 29, 2017 at 16:40 Hospital Day # Subjective: 81 amie old male patient followed by Dr. Ryanne Edwards admitted with right plantar foot ulceration and history of charcot. Patient denies any pain in his foot at this time. there is a clearly drawn line of demarcation of the proximal calf with minimal erythema of the distal leg indicating apparent decrease in erythema since admission. Gastrointestinal: Good Appetite Pain Management: No or Minimal Pain Objective Vital Sign - Last Date Time Temp Pulse Resp B/P Pulse Ox O2 Delivery O2 Flow Rate FiO2 02/01/17 13:15 36.3 60 17 136/59 97 Room Air 01/29/17 14:36 2 Intake and Output 01/31/17 01/31/17 02/01/17 Cumulative From/Thru 15:00 23:00 07:00 01/29/17 14:14 - 02/01/17 06:31 Intake Total 520 ml 1357 ml 7268 ml Output Total 2000 ml 650 ml 5055 ml Balance -1480 ml 707 ml 2213 ml Intake Oral 520 ml 400 ml 2517 ml IV Total 957 ml 4751 ml Output Urine Total 2000 ml 650 ml 5055 ml # Bowel Movements 2 Result Diagram: 01/30/17 0555 01/30/17 0555 Lab Test 01/29/17 13:30 01/29/17 13:50 01/29/17 16:30 01/29/17 22:30 Magnesium Level 2.1mg/dL (1.6-2.6) Total Bilirubin 0.6mg/dL (0.0-1.2) Aspartate Amino Transf (AST/SGOT) 23U/L (0-50) Alanine Aminotransferase (ALT/SGPT) 11U/L (0-44) Alkaline Phosphatase 101U/L (25-160) Total Protein 7.9g/dL (6.4-8.4) Albumin 3.6g/dL (3.4-5.0) Lactic Acid Level 1.9mmol/L (0.4-2.0) Hold Purple Top Tube Received (Received) Hold Irving Top Tube Received (Received) Hold Cunningham Top Tube Received (Received) Urine Color Yellow (YELLOW) Urine Appearance Clear (CLEAR,HAZY) Urine pH 5.0 (5.0-8.0) Urine Specific Hines 1.020 (1.003-1.035) Urine Protein 30mg/dL (NEG,TRACE) Urine Glucose (UA) 100mg/dL (NEGATIVE) Urine Ketones Negativemg/dL (NEGATIVE) Urine Occult Blood Negative (NEGATIVE) Urine Nitrite Negative (NEGATIVE) Urine Bilirubin Negative (NEGATIVE) Urine Urobilinogen Normalmg/dL (NORMAL) Urine Leukocyte Esterase Negative (NEGATIVE) Urine RBC 0-2/hpf (0-2) Urine WBC 0-5/hpf (0-5) Urine Epithelial Cells Few/hpf (NONE-MOD) Urine Crystals Amorphous urates (NONE Urine Bacteria None/hpf (NONE-FEW) Urine Hyaline Casts None/lpf (NONE) Urine Granular Casts None seen (NONE SEEN) Urine Waxy Casts None seen (NONE SEEN) Urine Red Blood Cell Casts None seen (NONE SEEN) Urine White Blood Cell Casts None seen (NONE SEEN) Urine Mucus Present (None Seen) Urine Trichomonas None seen (NONE SEEN) Urine Yeast None (NONE SEEN) Urine Culture Reflexed Not indicated Test 01/30/17 05:55 01/30/17 16:35 White Blood Count 13.2th/mm3 (3.8-10.1) Red Blood Count 3.10mil/mm3 (4.40-5.80) Hemoglobin 9.6g/dL (13.8-17.2) Hematocrit 30.2% (41.0-50.0) Mean Corpuscular Volume 97.4fL (81-100) Mean Corpuscular Hemoglobin 31.0pg (27.0-35.0) Mean Corpuscular Hemoglobin Concent 31.8% (32.0-37.0) Red Cell Distribution Width 15.5% (12.3-15.4) Platelet Count 140bil/L (150-400) Neutrophils (%) (Auto) 83.6% (40-74) Lymphocytes (%) (Auto) 8.6% (14-46) Monocytes (%) (Auto) 5.8% (4-12) Eosinophils (%) (Auto) 1.6% (0-5) Basophils (%) (Auto) 0.2% (0-3) Sodium Level 135mEq/L (134-144) Potassium Level 3.9mEq/L (3.5-5.2) Chloride Level 99mEq/L (97-108) Carbon Dioxide Level 20mmol/L (18-29) Blood Urea Nitrogen 76mg/dL (8-27) Creatinine 2.38mg/dL (0.76-1.27) Estimat Glomerular Filtration Rate 28mL/min (>59) Glucose Level 239mg/dL (60-99) Hemoglobin A1c 7.8% (4.8-5.6) Calcium Level 8.5mg/dL (8.5-10.1) Troponin T 0.012ug/L (0.0-0.011) Procalcitonin 5.36ng/mL (0.00-0.08) C-Reactive Protein 32.0mg/dL (0.0-0.5) Streptozyme 54.0IU/mL (0.0-200.0) Exam General: Alert Lower Extremities: Right: Edema localized Postop Sensory Motor: Distal Motor Intact, Motor 5/5 Podiatry WOUND : Wound Location/Description multiple previous amputations and partial amputations of the right distal foot including the great toe, 3rd and 4th toes. rocker bottom type foot with partial thickness plantar midfoot wound measuring approx. 1cm x .8cm x .1 cm no surrounding erythema, no exposed bone or tendon. no extension to deep tissue. no mal odor. no sign of local infection. Assessment & Plan Impression Right lower extremity cellulitis, partial thickness ulcer of the plantar right foot, history of Charcot deformity right LE Problems: Plan Mepilex dressing applied today. This will be changed every 48-72 hrs. No signs of abscess formation or infection. wound appears stable. Cellulitis appears to be responding to current antibiotics, follow Dr. Tawanda locke for outpatient antibiotic recs. patient appears stable from podiatric standpoint for transition to outpatient care, no surgical intervention needed at his time. Next visit by Dr. Edwards thursday02/02/17 Merlin Mckoy DPM Feb 01, 2017 14:41
--- NOTE | 2017-02-01 15:22 | NUR ---
Social Work-readiness for discharge: Data:EMR Reviewed. Pt is on day 3 of hospitalization for sepsis per H&P. Pt is not medically stable anticipate 1-2 more days. PT has seen pt and recommended SNF placement. ID also involved. placed order for SNF. SW met with pt and SO Meryl to discuss SNF placement, SW role explained. Pt continue to decline SNF and states he plans to return home. Meryl in agreement wit this plan. SW went over the risks of declining SNF and pt still adamant that he will be returning home. order received for HH-RN,PT,OT, and CARPET REPAIRER. SW discussed HH service, HH choice list provided. SW explained that lack of PCP can be a barrier to HH. Pt confirms his PCP is Efrain Myers, he has jut not been that happy with him, but will continue to use him. Pt and SO in agreement with HH Services. Pt and SO have no agency preference, SW referred to rotating calender and made referral to [facility] with [facility] For RN,PT,OT, and CARPET REPAIRER, access given. Pt's SO states she will be providing transport home at discharge. F2F to be completed by . SW will continue to follow. Assessment:Pt who would benefit from HH services. Plan:Pt to discharge home when medically stable via POV. Pt declining SNF. Pt agreeable to [facility] for RN,PT,OT, and CARPET REPAIRER, access given. F2F to be completed by . SW will continue to follow. JENNIFER Youssef
--- NOTE | 2017-02-01 17:29 | NUR ---
Chest pain 1650 Patient C/O chest pain 2/10 after drinking cold water. Vitals stable T 36.4 oral, P 98, BP 153/87 spine, RR 12, SPO2 96% RA. Patient denies nausea, diaphoresis, radiating pain. Patient does not have tele monitoring. States "this has happened before". Patient positioned for comfort. Gave Maalox which patient later reports makes chest pain "much better". Will continue to monitor. Bed low and locked, call light in reach, care and frequent rounding ongoing.
--- NOTE | 2017-02-01 18:36 | PCM.PNMED ---
Subjective Date of Service Feb 01, 2017 Subjective Patient without complaints of chest pain, dyspnea, nausea or vomiting. He was complaining of a sore mouth/throat and difficulty swallowing. Exam Vital Signs Vital Sign - Last Date Time Temp Pulse Resp B/P Pulse Ox O2 Delivery O2 Flow Rate FiO2 02/01/17 13:15 36.3 60 17 136/59 97 Room Air 01/29/17 14:36 2 Intake and Output 01/31/17 01/31/17 02/01/17 Cumulative From/Thru 15:00 23:00 07:00 01/29/17 14:14 - 02/01/17 06:31 Intake Total 520 ml 1357 ml 7268 ml Output Total 2000 ml 650 ml 5055 ml Balance -1480 ml 707 ml 2213 ml Intake Oral 520 ml 400 ml 2517 ml IV Total 957 ml 4751 ml Output Urine Total 2000 ml 650 ml 5055 ml # Bowel Movements 2 Exam Gen.-Sitting up in bed, no apparent distress, sad but not past the Eyes-closed, normal eyelids, no discharge ENT- ears normal, nose normal Neck- trach midline CVS-normal rate Lungs regular, nonlabored GI-flat Musc- moving 4 no deformities other than Charcot foot on the right with wound as described below and missing toe(s) Neuro- cranial nerves II through XII intact to gross examination, nonfocal Skin- warm and dry, hard eschar on plantar aspecte right foot 5 mm x 15 mm with a small surrounding raised area of erythema probably 2 cm in diameter(examined last 01/30) Psych- seems little withdrawn and sleepy but not nasty today Lab and Diagnostics Result Diagram: 01/30/17 0555 01/30/17 0555 X-Rays, CTs and MRIs X-RAY RIGHT FOOT, TWO VIEWS: Yunier Burt MD on 01/30/2017 at 12:59 1. Postsurgical changes. 2. Charcot joint. 3. Soft tissue swelling and gas redemonstrated. 4. Erosions involving the third and fourth metatarsal heads similar to prior examination. 5. Although no definite new bony erosions are identified, plain film radiography is relatively insensitive in the acute phases of osteomyelitis and may not demonstrate radiographic changes for 15 days. If acute osteomyelitis is of clinical concern, nuclear medicine regional bone scan or MRI is recommended. Dictated by: Tashi Ashford Annamarie Interpreted: Yunier uBrt MD on 01/30/2017 at 12 :59 X-RAY CHEST ONE VIEW, PORTABLE: Cedric Coyle M.D. on 01/29/2017 at 13:52 IMPRESSION: Decreased lung volumes, without acute cardiopulmonary disease. Dictated by: Cedric Coyle M.D. on 01/29/2017 at 13:52 12-lead ECG Sinus rhythm rate 82, QTC doubt it is actually 505 computer overreading concurrently reviewed by myself 01/29/70 First degree AV block . Prolonged IN interval . Nonspecific IVCD with LAD Cardiac Echo Impressions Echocardiogram Report: Christy Calhoun on 10/28/2016 NSR. Normal LV size; mild concentric LVH; severely reduced EF, estimated at 25- 30%. Stage II diastolic dysfunction. Severe LA enlargement; moderate RA enlargement. Mitral valve leaflets are mildly calcified; there is moderate MAC with moderate associated MR. Aortic valve is sclerotic without significant stenosis; there is mild associated AI. Compared to prior study performed 07/04/2016, EF is down from 60-65% to 25- 30%. Additional Diagnostics IMPRESSION: Abnormal myocardial perfusion images.: Kiley Blunt M.D. on 2015 at 14:08 1. 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 2. There is mild meir-infarct ischemia in the anterior apical wall. 3. Decreased wall thickening in the apex which is dyskinetic. There is mild left ventricular enlargement. Left ventricular ejection fraction is at the low normal range. 3. Hypotensive response to Lexiscan fusion. No chest pain or diagnostic EKG changes for ischemia. Dictated by: Kiley Blunt M.D. on 09/17/2015 at 14:08 Assessment & Plan 81-year-old male brought in by significant other due to erythema of right foot that is previously been infected, as well as confusion. 01/30 awaiting direction from podiatry and infectious disease. Plain film pending eval for osteomyelitis. Blood sugars not controlled, starting long- acting insulin. 01/31 continuing Zosyn, plain films hard to read right now were not calling osteomyelitis per infectious disease/podiatry. Adjusting insulin regimen for improved control blood sugars now 200-250. Patient is less unpleasant on current psychotropic regimen. 02/01 continuing Zosyn, awaiting Dr. Neff recommendation on discharge plan, thank you podiatry/Dr. Hayward following. Patient seems to be responding nicely to psychotropic regimen, no changes. Blood sugars persisting and now the 260 range we will bump Lantus and prandial and sliding scale. #Infected diabetic foot-plain films completed as noted above defer to podiatry/ ID to determine whether further imaging indicated. -got meropenem, clindamycin, vancomycin in ED- erythema that was present up to almost the knee has virtually resolved. -ID/podiatry following, thank you. -Zosyn 01/29- #Acute metabolic encephalopathy -Multifactorial possible sepsis plus gabapentin the setting of renal failure will follow. He is requesting the gabapentin and I will continue it. #IDDM-patient has been taking 20 units of short-acting 2-3 times a day as his blood sugars have been getting out of control. Then he is using sugar tablets I think that he is seesawing his blood sugars. 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 Witnessed that here during this interview. -low-dose Celexa and Seroquel bid daytime dose for sedation 01/29 -Psychiatry/behavioral health consult 01/30 #Prophylaxis-DVT with SCDs as able, heparin. GI not indicated #Disposition- DO NOT RESUSCITATE from independent living VTE Mechanical Devices: Intermittant Pneumatic CD Mario Hernández MD Feb 01, 2017 18:36
[2017-02-01 20:57] VITALS: BP 159/68; PULSE 60; RESP 16; O2SAT 95
[2017-02-01] MEDS ORDERED: Insulin GLARgine 100 Unit/mL Syringe SUBQ SCH ×2 (21:00)
[2017-02-02] MEDS: 0.9% Sodium Chloride 1,000 ML IV SCH (03:59)
[2017-02-02] MEDS: Piperacillin-Tazo 3.375 Gm Inj 3.375 GM in Dextrose 5% Minibag Plus 50 ML IV SCH (03:59)
[2017-02-02 04:08] VITALS: BP 161/69; PULSE 60; RESP 16; O2SAT 97
[2017-02-02 06:26] LABS: BASOPHILS % (AUTO) 0.6 % (0-3); EOSINOPHILS % (AUTO) 9.6 % (0-5); MONOCYTES % (AUTO) 6.4 % (4-12); Mean Corpuscular Hemoglobin 30.6 pg (27.0-35.0); Mean Corpuscular Volume 96.9 fL (81-100); NEUTROPHILS % (AUTO) 59.4 % (40-74); Platelet Count 187 bil/L (150-400)
[2017-02-02 06:48] LABS: Magnesium 2.2 mg/dL (1.6-2.6)
--- NOTE | 2017-02-02 07:07 | NUR ---
Blood sugar, Sleep: Blood sugar at HS was 276. Lantus and SS insulin administered. The heading machine operator sugar check decreased to 134. Pt refused Heparin at midnight, stated sleep was the most important thing for him last night. Pt was able to get several hours uninterrupted sleep.
[2017-02-02] MEDS: Insulin LISPRO 300 Unit/3 mL Inj SUBQ SCH ×2 (08:02→11:58)
[2017-02-02] MEDS: MeTOProlol XL 50 mg ER24 Tablet PO SCH (08:03)
[2017-02-02] MEDS: Nystatin 100,000 Unit/mL 5 mL Suspension PO SCH ×2 (08:04→11:58)
[2017-02-02] MEDS: Heparin 5,000 Unit/mL Inj SUBQ SCH (08:04)
[2017-02-02] MEDS ORDERED: Dextrose 10% 250 ML IV PRN (08:32)
--- NOTE | 2017-02-02 10:52 | PROG NOTE ---
[address] [address] PROGRESS NOTE PATIENT: DEVORA PARK : 1935 MR#: [id number] ADMIT: 01/29/2017 JOB ID: [id number] DATE: 02/02/2017 REASON FOR FOLLOW UP: Right plantar foot infection with cellulitis. INTERVAL HISTORY: Over the weekend, the patient has felt well. No fevers. No chills. No sweats. No new respiratory complaints. He still has a Moran catheter, and neither he nor I am certain why he still does. Otherwise no complaints. He notes that the discomfort he has experienced on his right plantar foot has resolved. PHYSICAL EXAMINATION: Reveals an afebrile gentleman. Temperature 36.7, pulse 60, respiratory rate 16, blood pressure 161/69. He is in no acute distress. He is awake and alert. Oral cavity negative. Lungs clear. Cardiac tones without new murmur. Abdomen benign. Moran catheter still present. The right foot is clearly a Charcot foot ankle on the plantar aspect. There is a small drain basically in the middle of the plantar foot, and there is no longer any surrounding cellulitis or tenderness. LABORATORIES: Include white count 6600, 10% eosinophils. Creatinine 1.45, versus 2.4 when he first arrived. CRP is 32, which is fairly impressive. Procalcitonin 5.36. Urinalysis without white cells. Streptozyme negative. Micro from the foot, group B strep. No anaerobes have been isolated yet, but those cultures are young for anaerobes. IMAGING: No additional imaging has been done. IMPRESSION: This patient appears to have a fairly complicated soft tissue infection of his right foot. This infection produced an encephalopathy which has already resolved. We have an organism here that is group B strep which is reproducibly susceptible to ampicillin. Note that Augmentin would provide coverage not only for the group B strep but for any anaerobes present. It would also cover the Escherichia coli he had isolated from that foot last year, but not this year. RECOMMENDATIONS: 1. I would continue Zosyn until he is ready to go. 2. I think he could be discharged at any time and I would send him out on Augmentin 875 b.i.d. and amoxicillin 500 b.i.d. just to increase the amoxicillin dose. 3. As he has followed up as an outpatient, he will need serial CRP levels given how high this one is and with the concern that it could be underlying osteo, though certainly clinically and by radiograph, we do not think that is the case right now. 4. I have placed a call to Dr. Edwards to discuss this case.
[2017-02-02 13:29] VITALS: BP 136/67; PULSE 60; RESP 18; O2SAT 97
--- NOTE | 2017-02-02 13:41 | PCM.DIMED ---
Discharge Instructions Date of Service Feb 02, 2017 Dates of Hospitalization Jan 29, 2017 at 16:40 Discharge Diagnosis Discharge Diagnosis Infection right foot Diet Discharge Diet: Heart Healthy, Diabetic Activity Discharge Activity: Other (try to minimize weight on the affected foot) Call your provider Call your provider for: Fever or Chills, Other (spreading redness or state of generalized malaise) Patient Instructions Patient Instructions Try and offload the weight off the affected foot Follow-up Provider: Daily Ward MD Follow-up with PCP in: Other (call for follow-up on blood sugars and pressure) Provider: Ryanne Edwards DPM Follow-up in: Other (patient has appointment at 3:00 in wound care clinic Wednesday 02/07) Mario Hernández MD Feb 02, 2017 13:41
[2017-02-02] MEDS ORDERED: AMOX500C2 PO (13:47)
[2017-02-02] MEDS ORDERED: AMOX-366 PO (13:47)
[2017-02-02] MEDS ORDERED: QUET25TA73 PO (13:47)
[2017-02-02] MEDS ORDERED: INSU100V7 SUBQ (13:47)
[2017-02-02] MEDS ORDERED: OXYC1TAB24 PO (13:47)
[2017-02-02] MEDS ORDERED: CITA20TA PO (13:47)
[2017-02-02] MEDS ORDERED: LACT1CAP13 PO (13:47)
--- NOTE | 2017-02-02 15:00 | NUR ---
Moran Removed around 1500, awaiting first void, instructed to notify staff once happens.
--- NOTE | 2017-02-02 15:16 | NUR ---
Social Work-discharge: Data:EMR Reviewed. Pt is on day 4 of hospitalization for sepsis per H&P. Pt is medically stable for discharge. PT continues to recommend SNF, pt continues to decline. has completed F2F and orders for HH-RN,PT,OT, and [employer]. BRIAN informed Karl Jose Cruz Key with [facility] of discharge and provided him with orders. BRIAN updated pt and so Meryl at bedside, both agreeable to plan. ID has placed pt on Oral abx. Pt's SO to provide transport home today. All updated and agreeable to plan. Assessment:Pt who would benefit from HH. Plan:Pt to discharge home today via POV. has completed F2F and orders for HH-RN,PT,OT, and [employer]. [facility] aware of the discharge. All updated and agreeable to plan. JENNIFER Youssef
--- NOTE | 2017-02-02 16:25 | NUR ---
Discharge Reviewed Discharge paperwork, care notes, and medications with pt -disclaimer signed. IV DCd intact and all belongings with pt. Pt denies pain and SOB. Escorted pt out of hospital in at 1625. Pt getting dropped off at home by girlfriend.
--- NOTE | 2017-02-02 18:31 | PCM.DC.MED ---
Discharge Summary Date of Service Feb 02, 2017 Dates of Hospitalization Date of Hospital Admission Jan 29, 2017 at 16:40 Date of Discharge: Feb 02, 2017 Providers: Admitting Physician: Juanita Hernández MD Primary Care Physician: Nopnaina Attending Physician: Juanita Hernández MD Diagnosis at Time of Discharge Diagnosis at Time of Discharge Infection right foot Consultations Dr. Neff infectious disease, podiatry doctors [facility] Procedures XRay, CTs & MRIs X-RAY RIGHT FOOT, TWO VIEWS: Yunier Burt MD on 01/30/2017 at 12:59 1. Postsurgical changes. 2. Charcot joint. 3. Soft tissue swelling and gas redemonstrated. 4. Erosions involving the third and fourth metatarsal heads similar to prior examination. 5. Although no definite new bony erosions are identified, plain film radiography is relatively insensitive in the acute phases of osteomyelitis and may not demonstrate radiographic changes for 15 days. If acute osteomyelitis is of clinical concern, nuclear medicine regional bone scan or MRI is recommended. Dictated by: Tashi Ashford RR Interpreted: Yunier Burt MD on 01/30/2017 at 12 :59 X-RAY CHEST ONE VIEW, PORTABLE: Cedric Coyle M.D. on 01/29/2017 at 13:52 IMPRESSION: Decreased lung volumes, without acute cardiopulmonary disease. Dictated by: Cedric Coyle M.D. on 01/29/2017 at 13:52 ECG 12 Lead Sinus rhythm rate 82, QTC doubt it is actually 505 computer overreading concurrently reviewed by myself 01/29/70 First degree AV block . Prolonged RI interval . Nonspecific IVCD with LAD Cardiac Echo Impression Echocardiogram Report: Christy Calhoun on 10/28/2016 NSR. Normal LV size; mild concentric LVH; severely reduced EF, estimated at 25- 30%. Stage II diastolic dysfunction. Severe LA enlargement; moderate RA enlargement. Mitral valve leaflets are mildly calcified; there is moderate MAC with moderate associated MR. Aortic valve is sclerotic without significant stenosis; there is mild associated AI. Compared to prior study performed 07/04/2016, EF is down from 60-65% to 25- 30%. Invasive Procedures None Other Diagnostics IMPRESSION: Abnormal myocardial perfusion images.: Kiley Blunt M.D. on 2015 at 14:08 1. 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 2. There is mild meir-infarct ischemia in the anterior apical wall. 3. Decreased wall thickening in the apex which is dyskinetic. There is mild left ventricular enlargement. Left ventricular ejection fraction is at the low normal range. 3. Hypotensive response to Lexiscan fusion. No chest pain or diagnostic EKG changes for ischemia. Dictated by: Kiley Blunt M.D. 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 The patient had antibiotics for osteomyelitis last fall. After the healing was complete, his right plantar foot continued to callus for a while and he failed to follow up outpatient after being [facility] from the [facility]. The callus was supposed to be debrided approximately once a month to prevent further re- ulceration. However, after three months of not seeing him, the ulceration has recurred. The patient has not been able to tell me exactly how long his foot has been hurting but stated that he was not feeling right yesterday and that his significant other, Meryl, brought him to the emergency department on podiatry reccomendation since he has had some fevers and chills at home as well as acting confused. Hospital Course 81-year-old male brought in by significant other due to erythema of right foot that is previously been infected, as well as confusion. 01/30 awaiting direction from podiatry and infectious disease. Plain film pending eval for osteomyelitis. Blood sugars not controlled, starting long- acting insulin. 01/31 continuing Zosyn, plain films hard to read right now were not calling osteomyelitis per infectious disease/podiatry. Adjusting insulin regimen for improved control blood sugars now 200-250. Patient is less unpleasant on current psychotropic regimen. 02/01 continuing Zosyn, awaiting Dr. Neff recommendation on discharge plan, thank you podiatry/Dr. Hayward following. Patient seems to be responding nicely to psychotropic regimen, no changes. Blood sugars persisting and now the 260 range we will bump Lantus and prandial and sliding scale. 02/02 spoke with infectious disease thank you Dr. Neff as well as podiatry thank you Dr. Edwards. they both agree and the patient can be discharged. Patient is anxious to discharge. I am discharging him with Augmentin 875 twice a day and amoxicillin 500 twice a day to be taken in addition for 14 days as per infectious disease recommendations. The patient will follow up (hopefully) in infectious disease with Dr. Edwards Wednesday 02/07.patient's confusion has resolved. We have started him on Celexa/Seroquel and this has made him much more pleasant and easy to deal with these seems agreeable to taking this. We also adjusted his insulin regimenand I gave him Lantus 20 units at bedtime , however I am not sure he is going to follow my recommendation since he showed me little if any respect for the duration of this hospitalization so likely he will be back on his prior regimen which I think he was uncontrolled and giving himself large boluses of insulin and becoming hypoglycemic as a result utilizing local tablets then treating the high blood sugar he had created after overtreating in both directions. furosemide was stopped during this hospitalization and not resumed and renal function has improved. During this hospitalization his attitude became much better on the psychotropic regimen noted below. His foot improved daily. If he does his follow-up in the outpatient setting perhaps this will resolve it is not clear that he does not have osteomyelitis at this point in time however given the bone destruction of the Charcot foot and this may be a clinical decision whether to continue antibiotics in 7-14 days and/or whether debridement is needed. The wound itself looks very good today. #Infected diabetic foot-plain films completed as noted above defer to podiatry/ ID -pain and erythema much better resolved basically by 02/02 -got meropenem, clindamycin, vancomycin in ED- erythema that was present up to almost the knee has virtually resolved. -ID/podiatry following, thank you. -Zosyn 01/29-02/02 -Working days of Augmentin/amoxicillin as indicated above #Acute metabolic encephalopathy-resolved 01/31 -Multifactorial possible sepsis plus gabapentin the setting of renal failure will follow. He is requesting the gabapentin and I will continue it. #IDDM-patient has been taking 20 units of short-acting 2-3 times a day as his blood sugars have been getting out of control. Then he is using sugar tablets I think that he is seesawing his blood sugars. 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 We are discharging him off of furosemide #CAD/systolic CHF/HTN/lipids- troponin slightly elevated, will check one more time this may be stress/renal failure no acute changes on EKG. Resolved no further action 01/31 - patient will need a Myoview when medically stable EF down from 60% to 30% when echo last checked in October -Holding furosemide -Continuing aspirin, atorvastatin, metoprolol #Anger/depression-son mentions the patient's mental condition somewhat deteriorated in an emotionally labile. Witnessed that here during this interview. much improved on regimen 02/02 -low-dose Celexa and Seroquel bid daytime dose for sedation 01/29 -Psychiatry/behavioral health consult 01/30 #Prophylaxis-DVT with SCDs as able, heparin. GI not indicated #Disposition- DO NOT RESUSCITATE from independent living patient's getting some home health but declined SNF which is what he really would have most benefited from. 02/02 Exam Vital Signs (Last) Date Time Temp Pulse Resp B/P Pulse Ox O2 Delivery O2 Flow Rate FiO2 02/02/17 13:29 36.5 60 18 136/67 97 Room Air 01/29/17 14:36 2 Test 01/29/17 13:30 01/29/17 13:50 01/29/17 16:30 01/29/17 22:30 Total Bilirubin 0.6mg/dL (0.0-1.2) Aspartate Amino Transf (AST/SGOT) 23U/L (0-50) Alanine Aminotransferase (ALT/SGPT) 11U/L (0-44) Alkaline Phosphatase 101U/L (25-160) Total Protein 7.9g/dL (6.4-8.4) Albumin 3.6g/dL (3.4-5.0) Lactic Acid Level 1.9mmol/L (0.4-2.0) Hold Purple Top Tube Received (Received) Hold [facility] Top Tube Received (Received) Hold [place] Top Tube Received (Received) Urine Color Yellow (YELLOW) Urine Appearance Clear (CLEAR,HAZY) Urine pH 5.0 (5.0-8.0) Urine Specific [place] 1.020 (1.003-1.035) Urine Protein 30mg/dL (NEG,TRACE) Urine Glucose (UA) 100mg/dL (NEGATIVE) Urine Ketones Negativemg/dL (NEGATIVE) Urine Occult Blood Negative (NEGATIVE) Urine Nitrite Negative (NEGATIVE) Urine Bilirubin Negative (NEGATIVE) Urine Urobilinogen Normalmg/dL (NORMAL) Urine Leukocyte Esterase Negative (NEGATIVE) Urine RBC 0-2/hpf (0-2) Urine WBC 0-5/hpf (0-5) Urine Epithelial Cells Few/hpf (NONE-MOD) Urine Crystals Amorphous urates (NONE Urine Bacteria None/hpf (NONE-FEW) Urine Hyaline Casts None/lpf (NONE) Urine Granular Casts None seen (NONE SEEN) Urine Waxy Casts None seen (NONE SEEN) Urine Red Blood Cell Casts None seen (NONE SEEN) Urine White Blood Cell Casts None seen (NONE SEEN) Urine Mucus Present (None Seen) Urine Trichomonas None seen (NONE SEEN) Urine Yeast None (NONE SEEN) Urine Culture Reflexed Not indicated Test 01/30/17 05:55 01/30/17 16:35 02/02/17 06:00 Hemoglobin A1c 7.8% (4.8-5.6) Troponin T 0.012ug/L (0.0-0.011) Procalcitonin 5.36ng/mL (0.00-0.08) C-Reactive Protein 32.0mg/dL (0.0-0.5) Streptozyme 54.0IU/mL (0.0-200.0) White Blood Count 6.6th/mm3 (3.8-10.1) Red Blood Count 3.20mil/mm3 (4.40-5.80) Hemoglobin 9.8g/dL (13.8-17.2) Hematocrit 31.0% (41.0-50.0) Mean Corpuscular Volume 96.9fL (81-100) Mean Corpuscular Hemoglobin 30.6pg (27.0-35.0) Mean Corpuscular Hemoglobin Concent 31.6% (32.0-37.0) Red Cell Distribution Width 14.8% (12.3-15.4) Platelet Count 187bil/L (150-400) Neutrophils (%) (Auto) 59.4% (40-74) Lymphocytes (%) (Auto) 23.8% (14-46) Monocytes (%) (Auto) 6.4% (4-12) Eosinophils (%) (Auto) 9.6% (0-5) Basophils (%) (Auto) 0.6% (0-3) Sodium Level 145mEq/L (134-144) Potassium Level 4.3mEq/L (3.5-5.2) Chloride Level 110mEq/L (97-108) Carbon Dioxide Level 24mmol/L (18-29) Blood Urea Nitrogen 37mg/dL (8-27) Creatinine 1.45mg/dL (0.76-1.27) Estimat Glomerular Filtration Rate 50mL/min (>59) Glucose Level 145mg/dL (60-99) Calcium Level 8.8mg/dL (8.5-10.1) Magnesium Level 2.2mg/dL (1.6-2.6) Discharge Medications Discharge Medications Allopurinol (Allopurinol) 100 Mg Tablet 100 MG PO DAILY (Reported) Amoxicillin (Amoxicillin) 500 Mg Capsule 500 MG PO BID Prescribed by: JUANITA HERNÁNDEZ MD Amoxicillin/Clav K 875-125 mg (Augmentin 875-125 mg) 1 Each Tablet 1 TABLET PO BID Prescribed by: JUANITA HERNÁNDEZ MD Aspirin (Aspirin) 81 Mg Tablet 81 MG PO DAILY (Reported) Atorvastatin Calcium (Atorvastatin Calcium) 10 Mg Tablet 10 MG PO HS Prescribed by: MIRIAN HAWK DO Cholecalciferol (Vitamin D3) (Vitamin D3) 2,000 Unit Capsule 2,000 UNIT PO QPM ( Reported) Citalopram Hydrobromide (Celexa) 20 Mg Tablet 10 MG PO DAILY Prescribed by: JUANITA HERNÁNDEZ MD Ferrous Sulfate (Ferrous Sulfate) 325 Mg Tablet 325 MG PO DAILY (Reported) Gabapentin (Gabapentin) 300 Mg Capsule 300 MG PO HS (Reported) Insulin Aspart (NovoLOG U-100 Pen) 100 Unit/Ml Insuln.pen 6-15 UNITS SUBQ TIDWM (Reported) based on BS reading and carbs consumed Insulin Glargine (Lantus U100 Insulin Vial) 100 Unit/Ml Vial 20 UNIT SUBQ HS Prescribed by: JUANITA HERNÁNDEZ MD Lactobacillus Acidophilus (Acidophilus) 1 Each Capsule 1 EACH PO DAILY Prescribed by: JUANITA HERNÁNDEZ MD Melatonin (Melatonin 1 mg Tablet) 1 Each Tablet 10 MG PO HS (Reported) Metoprolol Succinate ER (Toprol XL) 50 Mg Tablet 50 MG PO BID (Reported) Quetiapine Fumarate (Quetiapine Fumarate) 25 Mg Tablet 25 MG PO BID Prescribed by: JUANITA HERNÁNDEZ MD As needed Dextrose (Dex4 Glucose) 4 Gm Tab.chew 4 GM PO PRN PRN PRN hypoglycemia (Reported ) Melatonin (Melatonin 1 mg Tablet) 1 Each Tablet 1 MG PO HS PRN PRN Insomnia ( Reported) oxyCODONE-Acetaminophen 5-325 mg (oxyCODONE-Acetaminophen 5-325 mg) 1 Each Tablet 1-2 TAB PO Q6H PRN PRN For Pain Prescribed by: JUANITA HERNÁNDEZ MD Followup Plan Discharge Diet: Heart Healthy, Diabetic Discharge Activity: Other (try to minimize weight on the affected foot) Patient Instructions Try and offload the weight off the affected foot Follow-up Provider: Daily Ward MD Follow-up with PCP in: Other (call for follow-up on blood sugars and pressure) Provider: Ryanne Edwards DPM Follow-up in: Other (patient has appointment at 3:00 in wound care clinic Wednesday 02/07) Juanita Hernández MD Feb 02, 2017 18:31
== END 2017-02-02 16:45 | disposition home health service (06) | DRG 622 ==
LOC: SED 13:18 → MPC 16:40
PROVIDERS: ADMIT Hospitalist; ATTEND Hospitalist
PROC: 0JBQ0ZZ Excision of Right Foot Subcutaneous Tissue and Fascia, Open Approach (ICD-10-PCS; principal; 2017-01-30)
DX: E11.621 Type 2 diabetes mellitus with foot ulcer (principal); G93.41 Metabolic encephalopathy; L03.115 Cellulitis of right lower limb; I50.22 Chronic systolic (congestive) heart failure; F33.9 Major depressive disorder, recurrent, unspecified; E11.65 Type 2 diabetes mellitus with hyperglycemia; E11.610 Type 2 diabetes mellitus with diabetic neuropathic arthropathy; Z79.4 Long term (current) use of insulin; N17.9 Acute kidney failure, unspecified; N18.3 Chronic kidney disease, stage 3 (moderate); E78.5 Hyperlipidemia, unspecified; I12.9 Hypertensive chronic kidney disease with stage 1 through stage 4 chronic kidney disease, or unspecified chronic kidney disease; Z87.891 Personal history of nicotine dependence; Z66 Do not resuscitate; L97.512 Non-pressure chronic ulcer of other part of right foot with fat layer exposed; B95.1 Streptococcus, group B, as the cause of diseases classified elsewhere

== ENCOUNTER 2017-03-20 00:42 | Day surgery (SDC) | payer MEDICARE, OTHER ==
[~2017-03-20] VITALS: Ht 177.8 cm; Wt 99.8 kg
[~2017-03-20 00:42] MED LIST changes: +AMOX-366 PO; +AMOX500C2 PO; +CITA20TA PO; +FERR-83 PO; -HYDR-3938 PO; +INSU100V7 SUBQ; +LACT1CAP26 PO; -METO25TA6 PO; +METO50TA7 PO; -NPH,100V10 SUBQ; -ONDA8TAB10 PO; +QUET25TA73 PO; -VERA240C3 PO; -[UNRECOGNIZED DRUG - CODE] PO
--- NOTE | 2017-03-20 06:15 | NUR ---
Dr Pro messaged that patient had 2 handfuls of dehydrated oranges to eat this morning at 0500. I will refrain from starting iv's currently.
[2017-03-20] MEDS ORDERED: 0.9% Sodium Chloride 1,000 ML IV PRN (06:32)
[2017-03-20 06:34] VITALS: BP 140/72; PULSE 62; RESP 26; O2SAT 93
[2017-03-20] MEDS ORDERED: Vancomycin Inj 1,000 MG in IV Premix 1 EACH IV ONE (06:35)
[2017-03-20] MEDS ORDERED: QUET25TA73 PO (07:02)
[2017-03-20] MEDS ORDERED: MELA1TAB10 PO (07:02)
[2017-03-20] MEDS ORDERED: CITA10TA9 PO (07:02)
[2017-03-20] MEDS ORDERED: AMOX500T2 PO (07:02)
[2017-03-20] MEDS ORDERED: ATRV10T PO (07:02)
[2017-03-20] MEDS ORDERED: INSU100I SC (07:02)
[2017-03-20] MEDS ORDERED: NITR0.4T SL (07:02)
[2017-03-20] MEDS ORDERED: INSU100V7 SUBQ (07:02)
--- NOTE | 2017-03-20 07:15 | NUR ---
Dr Pro called back, procedure is cancelled. patient given instructions and he is dismissed ambulatory.
[2017-03-20] MEDS ORDERED: Sodium Chloride LOK Flush 10 mL Syringe IVFLUSH SCH (08:30)
[2017-03-27] MEDS ORDERED: LACT1CAP65 PO (09:16)
[2017-03-27] MEDS ORDERED: MULT-666 PO (09:16)
[2017-03-27] MEDS ORDERED: AMOX-366 PO (09:16)
[2017-03-27] MEDS ORDERED: OXYC1TAB24 PO (09:17)
== END 2017-03-20 23:59 | disposition home or self-care (01) ==
LOC: SOUO 00:42
PROVIDERS: ATTEND Internal Medicine Cardiovascular Disease
DX: I42.9 Cardiomyopathy, unspecified (principal); Z53.09 Procedure and treatment not carried out because of other contraindication

== ENCOUNTER 2017-05-06 21:54 | Emergency (ER) | payer MEDICARE, OTHER ==
[~2017-05-06] VITALS: Ht 175.3 cm; Wt 100.9 kg
[~2017-05-06 21:54] MED LIST changes: -AMOX-366 PO; -AMOX500C2 PO; -ATOR10TA66 PO; +ATRV10T PO; +CITA10TA9 PO; -CITA20TA PO; -DEXT4TAB PO; -GABA-502 PO; +INSU100I SC; -INSU100I SUBQ; -LACT1CAP26 PO; +LACT1CAP65 PO; +MULT-666 PO; +NITR0.4T SL
[2017-05-06 22:00] VITALS: BP 166/82; PULSE 85; RESP 16; O2SAT 96
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
[2017-05-07 00:51] VITALS: BP 143/59; PULSE 60; RESP 18; O2SAT 98
== END 2017-05-07 00:43 | disposition home or self-care (01) ==
LOC: SED 21:54
DX: R45.6 Violent behavior (principal); Y04.0XXA Assault by unarmed brawl or fight, initial encounter; Y93.89 Activity, other specified; Y99.8 Other external cause status; Y92.018 Other place in single-family (private) house as the place of occurrence of the external cause; I25.2 Old myocardial infarction; I10 Essential (primary) hypertension; E11.9 Type 2 diabetes mellitus without complications; E78.5 Hyperlipidemia, unspecified; Z87.891 Personal history of nicotine dependence; Z95.0 Presence of cardiac pacemaker; Z79.4 Long term (current) use of insulin; Z79.82 Long term (current) use of aspirin; Z88.8 Allergy status to other drugs, medicaments and biological substances; Z88.5 Allergy status to narcotic agent